=== PATIENT | male | born 1990 | race Two or more races ===

== ENCOUNTER 2024-09-11 16:48 | Emergency (ER) | payer MEDICAID, SELFPAY ==
[2024-09-11] VITALS (9 sets, daily range): BP systolic 162–202; BP diastolic 91–124; PULSE 61–74; RESP 13–19; TEMP 36.6–37; O2SAT 96–99; BMI 35.4
--- NOTE | 2024-09-11 17:14 | XR_ITS ---
Examination: PA lateral chest 2 views TECHNIQUE: Upright PA lateral chest 2 views Exam date and time: September 11, 2024 1733 hours INDICATIONS: Chest pain today FINDINGS: Normal heart size. Lungs are clear. The osseous structures are intact IMPRESSION: No active disease
--- NOTE | 2024-09-11 17:14 | EKG_ITS ---
[facility] Test Date: 2024-09-11 Pat Name: REMI JIMENEZ Department: Room: - Gender: Male Head Of Marketing: : 1990 Requested By: To Douglas Order Number: [id number] Reading MD: To Douglas Measurements Intervals Peetz Rate: 78 P: 38 SC: 136 QRS: 43 QRSD: 96 T: 40 QT: 368 QTc: 422 Interpretive Statements SINUS RHYTHM No previous ECG available for comparison /store/S0/[id number]/ecg/[id number].pdf
--- NOTE | 2024-09-11 17:16 | PD.EDRME ---
Rapid Medical Screening Exam RME Arrival date/time: 09/11/24 16:48 33-year-old male with a history of hypertension presents to the emergency room with a chief complaint of chest pain, cough, congestion x 2 days I have greeted and performed a focused initial assessment of this patient. A comprehensive ED assessment and evaluation of the patient, analysis of all test results, and completion of the medical decision making process will be conducted by additional ED providers. Chief Complaint: General Adult/Misc Complain Time Seen by Provider: 09/11/24 17:07 Vital signs: Vital Signs Temperature 97.9 F 09/11/24 17:09 Pulse Rate 74 09/11/24 17:09 Respiratory Rate 18 09/11/24 17:09 Blood Pressure 202/113 H 09/11/24 17:09 Pulse Oximetry (%) 96 09/11/24 17:09 Oxygen Delivery Method Room Air 09/11/24 17:09 Vital signs reviewed by provider: Yes
[2024-09-11] MEDS: cloNIDine HCL 0.1 MG TABLET PO ×2 (17:30→20:35)
[2024-09-11 17:37] LABS: Basophils # (Auto) 0.1 Thou/mm3 (0.0-0.2); Basophils % (Auto) 0 % (0-2.5); Eosinophils # (Auto) 0.2 Thou/mm3 (0.0-0.5); Eosinophils % (Auto) 2 % (0-10); Hematocrit 44.7 % (41.0-53.0); Hemoglobin 15.5 g/dL (13.5-16.0); Immature Granulocytes % (Auto) 2 % (0-0); Lymphocytes # (Auto) 2.4 Thou/mm3 (1.0-4.8); Lymphocytes % (Auto) 19 % (10-50); Mean Corpuscular HGB Conc 34.7 g/dl (31.0-37.0); Mean Corpuscular Hemoglobin 29.8 pg (25.0-35.0); Mean Corpuscular Volume 86 fL (80-100); Monocytes # (Auto) 0.7 Thou/mm3 (0.0-0.8); Monocytes % (Auto) 5 % (0-12); Neutrophils # (Auto) 8.9 Thou/mm3 (1.8-7.7); Neutrophils % (Auto) 72 % (37-80); Nucleated Red Blood Cell % 0 /100 WBC (0); Platelet Count 208 Thou/mm3 (140-440); RDW Standard Deviation 38.7 fL (35.1-43.9); White Blood Count 12.4 Thou/mm3 (3.8-10.6)
[2024-09-11 17:53] LABS: B-Type Natriuretic Peptide < 20 pg/mL (0-100)
[2024-09-11 17:54] LABS: Alanine Aminotransferase 24 U/L (10-49); Albumin, Serum 4.6 gm/dL (3.5-5.0); Albumin/Globulin Ratio 1.6 (1.2-2.2); Alkaline Phosphatase 97 U/L (46-116); Anion Gap 8 (7-16); Aspartate Amino Transferase 22 U/L (0-34); BUN/Creatinine Ratio 12 Ratio (12-20); Bilirubin,Total 0.5 mg/dL (0.3-1.2); Blood Urea Nitrogen 13 mg/dL (9-23); Carbon Dioxide 27.2 mMol/L (20.0-31.0); Chloride 108 mMol/L (98-107); Creatinine (Component) 1.1 mg/dL (0.6-1.3); Estimated Creatinine Clearance 116.1 mL/min (>60); Globulin 2.8 gm/dL (2.3-3.5); Glucose 101 mg/dL (74-106); Osmolality,Calculated 285 (275-295); Sodium 143 mMol/L (136-145); Total Protein 7.4 gm/dL (5.7-8.2); Troponin I < 0.002 ng/mL (0.0-0.045); eGFR > 60 See Note
[2024-09-11 18:29] LABS: Collection Type, Urine Clean Catch; Squamous Epithelial Cell,Urine 0 /hpf (0-5)
[2024-09-11 18:40] LABS: Bilirubin,Urine Negative (Negative); Blood,Urine Negative (Negative); Clarity,Urine Clear (Clear/Hazy); Color,Urine Lt-Yellow (Lt Yel-Yel); Glucose, Urine Trace (Negative); Ketones,Urine Negative (Negative); Leukocyte Esterase,Urine Negative (Negative); Nitrite,Urine Negative (Negative); PH,Urine 6.5 (5.0-7.0); Protein,Urine Trace (Neg - Trace); RBC,Urine 1 /hpf (0-3); Specific Gravity,Urine 1.027 (1.001-1.035); Urobilinogen,Urine Negative mg/dL (0.0-1.0); WBC,Urine 4 /hpf (0-5)
[2024-09-11 18:46] LABS: Amphetamine/Methamp Scrn,U Negative (Negative); Barbiturate Screen,Urine Negative (Negative); Benzodiazepines Screen,Urine Negative (Negative); Benzoylecgonine Screen, Ur Negative (Negative); Fentanyl Screen,Urine Negative (Negative); Opiate Screen,Urine Negative (Negative); THC Screen,Urine Negative (Negative)
--- NOTE | 2024-09-11 19:59 | EDNOTE_ITS ---
ED General RME/HPI General Chief complaint: General Adult/Misc Complain Stated complaint: BP HIGH, 180/107 30 AGO, HEADACHE, BODY ACHES Time Seen by Provider: 09/11/24 17:07 Source: patient Arrival date/time: 09/11/24 16:48 Mode of arrival: ambulatory Limitations: no limitations RME / HPI RME / HPI narrative: 09/11/24 16:48 33-year-old male with a history of hypertension presents to the emergency room with a chief complaint of chest pain, cough, congestion x 2 days I have greeted and performed a focused initial assessment of this patient. A comprehensive ED assessment and evaluation of the patient, analysis of all test results, and completion of the medical decision making process will be conducted by additional ED providers. Dr. Argueta?s Main ED Evaluation: 33yo male with a history of HTN presents to the ED for a chief complaint of chest pain x this morning. Patient states he initially started having lower back pain this morning, reporting it migrated to his mid chest when he was sitting in bed. He states his pain got progressively worse throughout the day, reporting it worsened when he sat down and got better when he would stand. He states he checked his blood pressure and was noted to be 180 systolically, so he came in for evaluation. He endorsed having shortness of breath and a headache with his chest pain. He denies any N/V, sweating or any other associated symptoms. Patient states he has not missed any doses of his lisinopril. He notes he has a history of tennis elbow and got a steroid injection to his right arm yesterday. Related Data Previous Rx's ?Medication ?Instructions ?Recorded Promethazine Hcl/Dextromethorphan 2 tsp PO Q6HR PRN co ugh #4 oz 02/07/16 SYRUP * (PHENERGAN DM SYRUP *) albuterol sulfate 90 mcg/actuation 2 puff inhalation Q 4HR PRN dyspnea 02/07/16 aerosol inhaler (ProAir HFA) #1 inh beclomethasone dipropionate 80 1 puff inhalation BID # 1 inh 02/07/16 mcg/actuation aerosol inhaler (Qvar) dextromethorphan-guaifenesin 5 10 ml PO Q8H PRN cough #120 mL 03/18/18 mg-100 mg/5 mL oral liquid (Robitussin Cough-Chest Congestion DM) fluticasone propionate 50 50 mcg intranasal QDAY #9.9 grams 08/28/17 mcg/actuation nasal spray,suspension (Flonase Allergy Relief) loratadine-pseudoephedrine ER 10 1 tab PO Q24H #10 tab s 08/28/17 mg-240 mg tablet,extended [id number] (Claritin-D 24 Hour) diphenhydramine HCl 25 mg capsule 25 mg PO TID PRN all ergic reaction 09/12/24 (Allergy (diphenhydramine)) #20 caps famotidine 20 mg tablet (Pepcid) 20 mg PO BID Allergic reaction 5 09/12/24 days #10 tabs prednisone 50 mg tablet 50 mg PO QDAY Allergic react ion 5 09/12/24 days #5 tabs Allergies Allergy/AdvReac Type Severity Reaction Status Date / Time No Known Allergies Allergy Verified 09/11/24 16:51 Review of Systems Review of Systems Systems Reviewed: All systems reviewed, normal except as documented Past Medical History Past Medical History CARDIAC: Negative Congestive Heart Failure RESPIRATORY: Negative Chronic Obstructive Pulmonary Disease (COPD) GENITOURINARY: Negative Renal Disease ENDOCRINE: Negative Diabetes Mellitus Type 1 or Diabetes Mellitus Type 2 Social History SMOKING STATUS: Never smoker ED Exam Narrative Physical exam: GENERAL APPEARANCE: alert and oriented x 4, well-developed, well-nourished, no acute distress VITALS: All vitals were reviewed and the pulse ox is 97% on room air, which is normal according to my interpretation. HEENT: Normocephalic, atraumatic; pupils equal, round, reactive to light; EOMI; mucous membranes pink, moist; oropharynx clear NECK: Supple LUNGS: CTABL; no wheezes, no rales, no rhonchi HEART: Regular rate, regular rhythm; normal S1, S2; no murmurs ABDOMEN: non distended; normal BS; soft, no tenderness, no guarding, no rebound; no masses, no organomegaly, no hernia BACK: no CVA tenderness EXTREMITIES: atraumatic; no edema NEUROLOGIC: awake; alert and oriented x4; cranial nerves II-XII grossly intact; no focal sensory or motor deficits PSYCHIATRIC: appropriate mood and affect SKIN: warm, dry, normal color; no rashes General Limitations: Present no limitations Course Course Course Narrative: CXR is ordered for determining the etiology of chest pain. Quality Measures none Orders Category Date Time Status Bedside COVID-19 Antigen Test NOW Care 09/11/24 17:14 Active Bedside Influenza A&B Antigen Test NOW Care 09/11/24 17:[address] Screening NOW Care 09/11/24 20:16 Active EKG (ED ONLY) *Do not use* NOW Care 09/11/24 17:14 Completed IV [Insert IV] NOW Care 09/11/24 20:[address] angio chest abdomen pelvis Stat Exams 09/11/24 20:[address] head/brain wo con Stat Exams 09/11/24 20:15 Completed EKG (ED Only) Stat Exams 09/11/24 17:14 Draft XR chest 2V Stat Exams 09/11/24 17:14 Completed B-Type Natriuretic Peptide Stat Lab 09/11/24 17:29 Completed CBC Stat Lab 09/11/24 17:29 Completed Comprehensive Metabolic Panel Stat Lab 09/11/24 17:29 Completed Drug Screen,Urine Stat Lab 09/11/24 18:00 Completed Troponin I Stat Lab 09/11/24 17:29 Completed Urinalysis Stat Lab 09/11/24 18:00 Completed Dexamethasone Inj [Decadron Inj] Med 09/11/24 23:14 Discontinued 10 mg IVP X1 ONE DiphenhydrAMINE INJ [Benadryl Inj] Med 09/11/24 23:14 Discontinued 25 mg IVP X1 ONE DiphenhydrAMINE INJ [Benadryl Inj] Med 09/11/24 23:09 Discontinued 50 mg .ROUTE .STK-MED ONE Famotidine Inj [Pepcid Inj] Med 09/11/24 23:14 Discontinued 20 mg IVP X1 ONE cloNIDine HCL [Catapres] Med 09/11/24 17:17 Discontinued 0.1 mg PO X1 ONE cloNIDine HCL [Catapres] Med 09/11/24 20:17 Discontinued 0.1 mg PO X1 ONE hydrALAZINE INJ [Apresoline Inj] Med 09/11/24 23:33 Discontinued 10 mg IV X1 ONE Vital Signs Vital signs: Vital Signs Temperature 97.9 F 09/11/24 17:09 Pulse Rate 74 09/11/24 17:09 Respiratory Rate 18 09/11/24 17:09 Blood Pressure 202/113 H 09/11/24 17:09 Pulse Oximetry (%) 96 09/11/24 17:09 Oxygen Delivery Method Room Air 09/11/24 17:09 [facility] Patient data External records reviewed:: [facility] previous records (Per chart review, patient has no previous ED visits or admissions to this facility.) Clinical information provided by:: patient Social determinants that could affect healthcare access:: none Patient has the following chronic illnesses:: HTN How is presenting disease/condition affected by chronic disease/condition?: e xacerbated by Evaluation data The following diagnostics were reviewed and interpreted by me:: lab results, radiology exam(s) and EKG tracing(s) Lab and/or radiology exams considered but not ordered:: none Interpretation Summary: Bedside COVID and Influenza are normal, WBC count is elevated at 12.4, CMP is normal, Troponin is normal, BNP is normal, UA is unremarkable, UDS is negative, according to my interpretation. EKG done at 1720, NSR, rate of 78, normal axis, no ectopy, no acute ischemia, according to my interpretation. [facility] Report Signed Patient: REMI JIMENEZ [facility]. Record#: [id number] Birthdate: 1990 Age/Sex: 33 / M Location: [facility] Attending Dr: Ordering Physician: To Carlisle Date of Service: 09/11/24 Procedure(s): XR chest 2V Accession Number(s): [id number] cc: To Carlisle; Mary Agustin; Tai Thorne MD~ Examination: PA lateral chest 2 views TECHNIQUE: Upright PA lateral chest 2 views Exam date and time: September 11, 2024 1733 hours INDICATIONS: Chest pain today FINDINGS: Normal heart size. Lungs are clear. The osseous structures are intact IMPRESSION: No active disease Dictated By: Tai Thorne MD Signed By: <Electronically signed by Tai Thorne MD in OV> 09/11/241816 [facility] Signed Patient: REMI JIMENEZ [facility]. Record#: [id number] Birthdate: 1990 Age/Sex: 33 / M Location: [facility] Attending Dr: Ordering Physician: Eliceo Argueta MD Date of Service: 09/11/24 Procedure(s): CT angio chest abdomen pelvis Accession Number(s): [id number] cc: Mary Agustin; Tai Thorne MD; Eliceo Argueta MD~ Examination: CTA chest, with intravenous contrast. CTA abdomen, with intravenous contrast. CTA pelvis, with intravenous contrast. 2-D sagittal and coronal reconstructions. 3-D reconstructions. Date and time of exam: September 11, 2024, 10:54 PM INDICATIONS: High blood pressure chest and upper abdominal pain today CTDI vol (mgy) 12.3 DLP (MGycm) 1002 Technique: Multiple CTA images, 2.0 mm slice thickness, obtained chest, abdomen, pelvis, with the high-resolution 64 slice scanner. 100 cc Isovue-370 is administered intravenously. Sagittal and coronal 2-D reconstructions are obtained. 3-D reconstructions, angiographic images are obtained. 3-D postprocessing, including vascular maximum intensity projections. Low dose protocols were performed. One or more of the following dose reduction techniques were used; automated exposure control, adjustment of the mA and/or KV according to patient size, use of iterative reconstruction technique. Findings: No thoracic aortic aneurysm dilatation or dissection Pulmonary artery segments are not enlarged No pulmonary artery filling defects No paratracheal tracheobronchial or bronchopulmonary adenopathy. No pneumonia, pulmonary edema or pleural disease No liver or splenic lesion Contracted gallbladder, no extrahepatic biliary tract dilatation Negative for pancreatitis. Normal adrenal glands. Abdominal aorta is not enlarged, no dissection No renal or ureteral calculi, no hydronephrosis Normal appendix No bowel obstruction or diverticulitis Negative for prostatomegaly Contracted urinary bladder Intact osseous structures IMPRESSION: No thoracic or abdominal aortic aneurysm dilatation or dissection Negative for pulmonary artery emboli No pneumonia, pulmonary edema or pleural disease No acute process in the abdomen or pelvis Dictated By: Tai Thorne MD Signed By: <Electronically signed by Tai Thorne MD in OV> 09/12/24 0001 [facility] Signed Patient: REMI JIMENEZ Med. Record#: [id number] Birthdate: 1990 Age/Sex: 33 / M [facility] Attending Dr: Ordering Physician: Eliceo Argueta MD Date of Service: 09/11/24 Procedure(s): CT head/brain wo con Accession Number(s): [id number] cc: Mary Agustin; Tai Thorne MD; Eliceo Argueta MD~ Examination: CT brain head without contrast. 2-D sagittal coronal reconstructions Date and time of exam:September 11, 2024, 10:50 PM INDICATIONS: High blood pressure headaches today CTDI: vol (mGy):53 DLP: (mGycm):1059 Technique: Multiple CT axial sections of the brain have been obtained, 5 mm slice thickness. Contrast has not been administered. 2-D sagittal, coronal reconstructions have been obtained Low dose protocols were performed. One or more of the following dose reduction techniques were used; automated exposure control, adjustment of the mA and/or KV according to patient size, use of iterative reconstruction technique. Findings: No significant ventricular enlargement. Intra-axial or extra-axial hemorrhage density is not seen. No mass effect or midline shift Basal cisterns are not remarkable. Fourth ventricle is midline. Cranial vault intact. Mild chronic maxillary sinusitis Impression: Negative for acute hemorrhage, mass effect or midline shift Dictated By: Tai Thorne MD Signed By: <Electronically signed by Tai Thorne MD in OV> 09/11/24 0040 Medications Medications considered but not ordered:: none Medication administrations:: Medication Administration History Discontinued Medications Clonidine (Clonidine Hcl 0.1 Mg Tablet) 0.1 mg PO X1 ONE Stop: 09/11/24 17:18 Last Admin: 09/11/24 17:30 Dose: 0.1 mg Documented By: Clonidine (Clonidine Hcl 0.1 Mg Tablet) 0.1 mg PO X1 ONE Stop: 09/11/24 20:18 Last Admin: 09/11/24 20:35 Dose: 0.1 mg Documented By: GEN Dexamethasone Sodium Phosphate (Dexamethasone Sod Phos Inj 4 Mg/Ml Vial) 10 mg IVP X1 ONE; Protocol Stop: 09/11/24 23:15 Diphenhydramine HCl (Diphenhydramine Inj 50 Mg/Ml Vial) 25 mg IVP X1 ONE Stop: 09/11/24 23:15 Diphenhydramine HCl (Diphenhydramine Inj 50 Mg/Ml Vial) Confirm Administered Dose 50 mg .ROUTE .STK-MED ONE Stop: 09/11/24 23:10 Famotidine (Famotidine Inj 10 Mg/Ml Vial 2 Ml) 20 mg IVP X1 ONE Stop: 09/11/24 23:15 Hydralazine HCl (Hydralazine Inj 20 Mg/Ml Vial) 10 mg IV X1 ONE Stop: 09/11/24 23:34 see above Consultations Consultation(s) initiated? (list below): No Diagnosis Differential Diagnosis ED Complaint MDM: benign essential hypertension, hypertensive emergency, aortic dissection Most likely diagnosis given after review of the tests above:: see clinical impression below Admission Indicated Admission indicated?: not indicated Explain why admission is indicated or not indicated:: no significant findings Admission Request Was there a request for admission?: No Disposition Plan Disposition Plan: Discharge Discharge Attestation Discharge Attestation: The patient and all family members were given an opportunity to ask questions and understood the discharge instructions. Discharge instructions specifically effects, indications for sooner follow up or return to the emergency department, and the expected course of current diagnosis. Patient condition: Stable Medical Decision Making MDM Narrative MDM Narrative: Scribe Attestation: 09/11/24 - Geraldine Osborne am scribing for and in the presence of Dr. Argueta. 2314: Patient is having a reaction after receiving IV contrast, reporting his face and lips feel numb and his eyes are irritated. On exam, he has periorbital swelling and scleral injection, but no respiratory distress. Decadron, Benadryl, and Pepcid ordered. Differential Diagnosis Differential Diagnosis: benign essential hypertension, hypertensive emergency, aortic dissection Lab Data 09/11/24 17:29 09/11/24 17:29 Labs: Lab Results 09/11/24 09/11/24 Range/Units 17:29 18:00 WBC 12.4 H (3.8-10.6) Thou/mm3 RBC 5.20 (4.50-5.90) Miln/mm3 Hgb 15.5 (13.5-16.0) g/dL Hct 44.7 (41.0-53.0) % MCV 86 (80-100) fL MCH 29.8 (25.0-35.0) pg MCHC 34.7 (31.0-37.0) g/dl RDW Std Deviation 38.7 (35.1-43.9) fL Plt Count 208 (140-440) Thou/mm3 Neut % (Auto) 72 (37-80) % Lymph % (Auto) 19 (10-50) % Major % (Auto) 5 (0-12) % Eos % (Auto) 2 (0-10) % Baso % (Auto) 0 (0-2.5) % Neut # (Auto) 8.9 H (1.8-7.7) Thou/mm3 Lymph # (Auto) 2.4 (1.0-4.8) Thou/mm3 Major # (Auto) 0.7 (0.0-0.8) Thou/mm3 Eos # (Auto) 0.2 (0.0-0.5) Thou/mm3 Baso # (Auto) 0.1 (0.0-0.2) Thou/mm3 Immature Gran # (Auto) 0.20 H (0.00-0.00) Thou/mm3 Absolute Nucleated RBC 0.00 (0.00-0.00) Thou/mm3 Immature Gran % 2 H (0-0) % Nucleated RBC % 0 (0) /100 WBC Sodium 143 (136-145) mMol/L Potassium 4.0 (3.4-5.1) mMol/L Chloride 108 H (98-107) mMol/L Carbon Dioxide 27.2 (20.0-31.0) mMol/L Anion Gap 8 (7-16) BUN 13 (9-23) mg/dL Creatinine 1.1 (0.6-1.3) mg/dL Estim Creat Clear Calc 116.1 (>60) mL/min eGFR > 60 (60 - ) See Note BUN/Creatinine Ratio 12 (12-20) Ratio Glucose 101 (74-106) mg/dL Calculated Osmolality 285 (275-295) Calcium 9.0 (8.3-10.6) mg/dL Corrected Calcium 9.0 (8.5-10.1) mg/dL Total Bilirubin 0.5 (0.3-1.2) mg/dL AST 22 (0-34) U/L ALT 24 (10-49) U/L Alkaline Phosphatase 97 (46-116) U/L Troponin I < 0.002 (0.0-0.045) ng/mL B-Natriuretic Peptide < 20 (0-100) pg/mL Total Protein 7.4 (5.7-8.2) gm/dL Albumin 4.6 (3.5-5.0) gm/dL Globulin 2.8 (2.3-3.5) gm/dL Albumin/Globulin Ratio 1.6 (1.2-2.2) Ur Collection Type Clean Catch Urine Color Lt-Yellow (Lt Yel-Yel) Urine Clarity Clear (Clear/Hazy) Urine pH 6.5 (5.0-7.0) Ur Specific [place] 1.027 (1.001-1.035) Urine Protein Trace (Neg - Trace) Urine Glucose (UA) Trace (Negative) Urine Ketones Negative (Negative) Urine Blood Negative (Negative) Urine Nitrite Negative (Negative) Urine Bilirubin Negative (Negative) Urine Urobilinogen (Auto) Negative (0.0-1.0) mg/dL Ur Leukocyte Esterase Negative (Negative) Urine RBC 1 (0-3) /hpf Urine WBC 4 (0-5) /hpf Ur Squamous Epith Cells 0 (0-5) /hpf Urine Bacteria None (None) Urine Opiates Screen Negative (Negative) Urine Fentanyl Screen Negative (Negative) Ur Barbiturates Screen Negative (Negative) U Amphetamin/Meth Scrn Negative (Negative) U Benzodiazepines Scrn Negative (Negative) U Cocaine Metab Screen Negative (Negative) U Marijuana (THC) Screen Negative (Negative) Discharge Plan Plan Patient Disposition: HOME (Self Care) Disposition Comment: Stable for discharge Patient condition on transfer: Stable Prescriptions/Referrals Prescriptions/Med Rec: No Action loratadine-pseudoephedrine [Claritin-D 24 Hour] 10-240 mg tablet extended release 24 hr 1 tab PO Q24H Qty: 10 0RF dextromethorphan-guaifenesin [Robitussin Cough-Chest Tien DM] 5-100 mg/5 mL liquid 10 ml PO Q8H PRN (Reason: cough) Qty: 120 0RF fluticasone propionate [Flonase Allergy Relief] 50 mcg/actuation spray,suspension 50 mcg INTRANASAL QDAY Qty: 9.9 0RF beclomethasone dipropionate [Qvar] 100 PUFF/INH aerosol 1 puff Inhalation BID Qty: 1 0RF albuterol sulfate [ProAir HFA] 8.5 GM HFA aerosol inhaler 2 puff Inhalation Q4HR PRN (Reason: dyspnea) Qty: 1 0RF Promethazine Hcl/Dextromethorphan SYRUP * (PHENERGAN DM SYRUP *) 473 ML syrup 2 tsp PO Q6HR PRN (Reason: cough) Qty: 4 0RF Referrals: Mary Agustin FNP [Primary Care Provider] - In 1 week Problem List Clinical Impression: Hypotension, Chest pain, Allergic reaction to contrast dye Patient/Caregiver Discharge Instructions Print Language: Malian Stand Alone Forms: Madelyn Award Info., Patient Portal Info Letter
--- NOTE | 2024-09-11 20:04 | PC.NURSE ---
Pt brogught to rm. VS normal other than high BP. States ptin to chest was sharm . States sitting down actually makes pain worse. pt states he had a cough and congestion last wk. pt states pain decreased since arival.
--- NOTE | 2024-09-11 20:15 | XR_ITS ---
Examination: CT brain head without contrast. 2-D sagittal coronal reconstructions Date and time of exam:September 11, 2024, 10:50 PM INDICATIONS: High blood pressure headaches today CTDI: vol (mGy):53 DLP: (mGycm):1059 Technique: Multiple CT axial sections of the brain have been obtained, 5 mm slice thickness. Contrast has not been administered. 2-D sagittal, coronal reconstructions have been obtained Low dose protocols were performed. One or more of the following dose reduction techniques were used; automated exposure control, adjustment of the mA and/or KV according to patient size, use of iterative reconstruction technique. Findings: No significant ventricular enlargement. Intra-axial or extra-axial hemorrhage density is not seen. No mass effect or midline shift Basal cisterns are not remarkable. Fourth ventricle is midline. Cranial vault intact. Mild chronic maxillary sinusitis Impression: Negative for acute hemorrhage, mass effect or midline shift
--- NOTE | 2024-09-11 20:15 | XR_ITS ---
Examination: CTA chest, with intravenous contrast. CTA abdomen, with intravenous contrast. CTA pelvis, with intravenous contrast. 2-D sagittal and coronal reconstructions. 3-D reconstructions. Date and time of exam: September 11, 2024, 10:54 PM INDICATIONS: High blood pressure chest and upper abdominal pain today CTDI vol (mgy) 12.3 DLP (MGycm) 1002 Technique: Multiple CTA images, 2.0 mm slice thickness, obtained chest, abdomen, pelvis, with the high-resolution 64 slice scanner. 100 cc Isovue-370 is administered intravenously. Sagittal and coronal 2-D reconstructions are obtained. 3-D reconstructions, angiographic images are obtained. 3-D postprocessing, including vascular maximum intensity projections. Low dose protocols were performed. One or more of the following dose reduction techniques were used; automated exposure control, adjustment of the mA and/or KV according to patient size, use of iterative reconstruction technique. Findings: No thoracic aortic aneurysm dilatation or dissection Pulmonary artery segments are not enlarged No pulmonary artery filling defects No paratracheal tracheobronchial or bronchopulmonary adenopathy. No pneumonia, pulmonary edema or pleural disease No liver or splenic lesion Contracted gallbladder, no extrahepatic biliary tract dilatation Negative for pancreatitis. Normal adrenal glands. Abdominal aorta is not enlarged, no dissection No renal or ureteral calculi, no hydronephrosis Normal appendix No bowel obstruction or diverticulitis Negative for prostatomegaly Contracted urinary bladder Intact osseous structures IMPRESSION: No thoracic or abdominal aortic aneurysm dilatation or dissection Negative for pulmonary artery emboli No pneumonia, pulmonary edema or pleural disease No acute process in the abdomen or pelvis
[2024-09-11] MEDS: DiphenhydrAMINE INJ 50 MG/ML VIAL 25 MG IVP (23:20)
[2024-09-12] VITALS: BP 150/99; O2SAT 98
[2024-09-12 00:10] VITALS: BP 160/92
[2024-09-12] MEDS: FAMOTIDINE INJ 10 MG/ML VIAL 2 ML 20 MG IVP (00:20)
[2024-09-12] MEDS: DEXAMETHASONE SOD PHOS INJ 4 MG/ML VIAL 10 MG IVP (00:21)
--- NOTE | 2024-09-12 00:30 | PC.NURSE ---
Pt taken to rm 278 on monitor by TRACIE
[2024-09-12 00:33] VITALS: BP 151/96; PULSE 60; RESP 16; TEMP 36.8; O2SAT 98
--- NOTE | 2024-09-12 00:34 | PC.NURSE ---
Redness to R side of face is kane. No longer has numbness/tingling to mouth. Pt feels normal.
== END 2024-09-12 00:50 | disposition home or self-care (01) ==
PROVIDERS: Nurse Practitioner Family; Emergency Provider Emergency Medicine; PCP Nurse Practitioner Family
DX: I95.9 Hypotension, unspecified (principal); R07.9 Chest pain, unspecified; Z91.041 Radiographic dye allergy status; I10 Essential (primary) hypertension; R51.9 Headache, unspecified
CPT/HCPCS: 36415; 70450; 71046; 71275; 74174; 80053; 80307; 81001; 83880; 84484; 85025; 87400; 87811; 93005; 96374; 96375; 99285; A4649; J1100; J1200; J3490; Q9967; A9270